=== PATIENT | female | born 1980 | race Caucasian/White ===

== ENCOUNTER 2017-06-01 20:35 | Emergency (ER) | payer SELFPAY, MEDICAID | END 2017-06-02 00:44 | disposition home or self-care (01) | LOC: FTE 20:35 | DX: S00.83XA Contusion of other part of head, initial encounter (principal); K05.10 Chronic gingivitis, plaque induced; W50.0XXA Accidental hit or strike by another person, initial encounter; Y92.9 Unspecified place or not applicable | CPT/HCPCS: 99283 ==

== ENCOUNTER 2018-06-03 15:13 | Emergency (ER) | payer MEDICAID ==
[2018-06-03 16:32] LABS: URINE BLOOD (Dip) POC 2+ (NEGATIVE); URINE GLUCOSE (Dip) POC Negative (NEGATIVE); URINE KETONES (Dip) POC Negative (NEGATIVE); URINE LEUKOCYTE EST (Dip) POC 3+ (NEGATIVE); URINE NITRITE (Dip) POC Negative (NEGATIVE); URINE TOTAL PROTEIN POC 1+ (NEGATIVE)
[2018-06-03] MEDS: LIDOCAINE 1% (MDV) 20 ML INJ SC (17:38)
[2018-06-03] MEDS: CEFTRIAXONE 1 GM INJ IM (17:38)
== END 2018-06-03 17:51 | disposition home or self-care (01) ==
LOC: FTE 17:51
DX: N39.0 Urinary tract infection, site not specified (principal)
CPT/HCPCS: 81003; 81025; 82962; 96372; 99284-25

== ENCOUNTER 2018-07-11 19:27 | Inpatient (IN) | payer MEDICAID ==
[2018-07-11 20:25] LABS: WHITE BLOOD COUNT 25.6 10^3/ul (4.8-10.8)
[2018-07-11 20:25] LABS: ABNORMAL IP MESSAGE 1; HEMATOCRIT 26.4 % (37.0-47.0); HEMOGLOBIN 7.4 g/dl (12.0-16.0); MEAN CORPUSCULAR HEMOGLOBIN 21.5 pg (29.0-33.0); MEAN CORPUSCULAR VOLUME 76.7 fl (82.0-101.0); MEAN PLATELET VOLUME 8.5 fl (7.4-10.4); PLATELET COUNT 834 10^3/UL (140-415); RED BLOOD COUNT 3.44 10^6/ul (4.20-5.40)
[2018-07-11] MEDS: SODIUM CHLORIDE 0.9% 1L BAG IV* (20:25)
[2018-07-11 20:35] LABS: ADD MAN DIFF? YES; POSITIVE DIFF @See below
[2018-07-11 20:36] LABS: PATH REVIEW? YES
[2018-07-11 20:44] LABS: INR 1.13; PROTIME 14.6 Sec (11.9-14.9); PT RATIO 1.1
[2018-07-11 20:45] LABS: PARTIAL THROMBOPLASTIN TIME 31.8 Sec (23.0-35.0)
[2018-07-11 20:50] LABS: ALBUMIN 3.5 g/dl (3.3-4.9); ALBUMIN/GLOBULIN RATIO 0.53; ALKALINE PHOSPHATASE 135 IU/L (42-121); ANION GAP 9 (5-13); ASPARTATE AMINO TRANSFERASE 18 IU/L (15-46); BILIRUBIN,INDIRECT 0.6 mg/dl (0-1.1); BILIRUBIN,TOTAL 0.6 mg/dl (0.2-1.3); BLOOD UREA NITROGEN 10 mg/dl (7-20); CALCIUM 9.2 mg/dl (8.4-10.2); CARBON DIOXIDE 25 mmol/L (21-31); CHLORIDE 100 mmol/L (97-110); CREATININE 0.92 mg/dl (0.44-1.00); Estimated GFR > 60 mL/min (>60); GLUCOSE 127 mg/dl (70-220); SODIUM 134 mmol/L (135-144)
[2018-07-11 20:51] LABS: ALANINE AMINOTRANSFERASE < 6 IU/L (13-69)
[2018-07-11 21:01] LABS: TROPONIN-I < 0.012 ng/ml (0.000-0.120)
[2018-07-11 21:24] LABS: ADD UMIC YES; UR AMORPHOUS CRYSTAL FEW /HPF (NONE SEEN); UR ASCORBIC ACID NEGATIVE (NEGATIVE); UR BACTERIA FEW /HPF (NONE SEEN); UR BILIRUBIN (Dip) NEGATIVE (NEGATIVE); UR BLOOD (Dip) 3+ mg/dL (NEGATIVE); UR CLARITY SLIGHTLY CLOUDY (CLEAR); UR COLOR YELLOW (YELLOW); UR GLUCOSE (Dip) NEGATIVE (NEGATIVE); UR KETONES (Dip) NEGATIVE (NEGATIVE); UR LEUKOCYTE ESTERASE (Dip) 3+ Leu/ul (NEGATIVE); UR NITRITE (Dip) NEGATIVE (NEGATIVE); UR RBC 33 /HPF (0-5); UR SPECIFIC GRAVITY (Dip) 1.008 (1.003-1.030); UR SQUAMOUS EPITHELIAL CELL FEW /HPF (FEW); UR TOTAL PROTEIN (Dip) NEGATIVE (NEGATIVE); UR UROBILINOGEN (Dip) 1+ mg/dL (NEGATIVE); UR WBC 38 /HPF (0-5)
[2018-07-11] MEDS: CEFEPIME 1GM/50 ML (PMX) 50 ML IVPB (21:25)
[2018-07-11] MEDS: VANCOMYCIN 1 GM (PMX) 250 ML IVPB (21:51)
[2018-07-11 22:04] LABS: ANISOCYTOSIS 2+ (0-0); BAND NEUTROPHILS #M 0.7 10^3/ul (0.0-0.6); BAND NEUTROPHILS % (M) 3 % (0-4); GIANT THROMBO% (M) 2 % (0-0); HYPOCHROMASIA 1+ (0-0); LYMPHOCYTES #M 6.9 10^3/ul (0.8-2.9); LYMPHOCYTES % (M) 27 % (15-51); MICROCYTOSIS 1+ (0-0); MONOCYTE #M 0.7 10^3/ul (0.3-0.9); MONOCYTES % (M) 3 % (0-11); PLATELET ESTIMATE INCREASED; POIKILOCYTOSIS 1+ (0-0); POLYCHROMASIA 3+ (0-0); SEG NEUT #M 17.3 10^3/ul (1.6-7.5); SEGMENTED NEUTROPHILS (M) % 67 % (39-77); SMUDGE%M 5 % (0-0)
[2018-07-11] MEDS: KETOROLAC 15 MG INJ IV (22:46)
[2018-07-11] MEDS: ACETAMINOPHEN 325 MG TAB PO (22:47)
[2018-07-12] MEDS ORDERED: ACETAMINOPHEN 325 MG TAB PO
[2018-07-12] MEDS ORDERED: ONDANSETRON 4 MG INJ IV ×2 (00:30)
[2018-07-12] MEDS ORDERED: NACL 0.9% 3 ML SYG IV (00:30)
[2018-07-12] MEDS ORDERED: HYDROmorphONE 0.5 MG/0.5 ML SYG IV (00:30)
[2018-07-12] MEDS: SOD CHLORIDE 0.9% 1,000 ML IV ×4 (00:32→22:26)
[2018-07-12] MEDS: TAMSULOSIN (SR) 0.4 MG CAP PO ×2 (00:33→21:33)
[2018-07-12] MEDS: CEFTRIAXONE 2 GM/50 ML (PMX) 50 ML IVPB (03:45)
[2018-07-12 06:21] LABS: IRON 17 ug/dl (35-150)
[2018-07-12 06:30] LABS: LACTIC ACID 0.9 mmol/L (0.5-2.0)
[2018-07-12 06:30] LABS: % IRON SATURATION 11 % SAT (22-52); TOTAL IRON BINDING CAPACITY 153 ug/dl (241-421)
[2018-07-12] MEDS: SOD FERRIC GLUC COMPLX 125 MG in SOD CHLORIDE 0.9% 100 ML IVPB (17:21)
[2018-07-13] MEDS: CEFTRIAXONE 2 GM/50 ML (PMX) 50 ML IVPB (03:46)
[2018-07-13 05:37] LABS: ADD MAN DIFF? NO
[2018-07-13 05:41] LABS: WHITE BLOOD COUNT 14.9 10^3/ul (4.8-10.8)
[2018-07-13 05:41] LABS: ABNORMAL IP MESSAGE 1; BASOPHIL # 0.1 10^3/ul (0.0-0.1); BASOPHILS % 0.4 % (0.0-2.0); EOSINOPHILS # 0.1 10^3/ul (0.0-0.5); EOSINOPHILS % 0.5 % (0.0-7.0); HEMATOCRIT 21.6 % (37.0-47.0); LYMPHOCYTES # 3.5 10^3/ul (0.8-2.9); LYMPHOCYTES % 23.4 % (15.0-51.0); MEAN CORPUSCULAR HEMOGLOBIN 21.7 pg (29.0-33.0); MEAN CORPUSCULAR HGB CONC 27.8 g/dl (32.0-37.0); MEAN PLATELET VOLUME 8.6 fl (7.4-10.4); MONOCYTES % 6.7 % (0.0-11.0); NEUTROPHIL # 10.2 10^3/ul (1.6-7.5); NEUTROPHILS % 68.4 % (39.0-77.0); PLATELET COUNT 583 10^3/UL (140-415); RED BLOOD COUNT 2.77 10^6/ul (4.20-5.40); RED CELL DISTRIBUTION WIDTH 19.9 % (11.5-14.5)
[2018-07-13 05:43] LABS: POSITIVE DIFF @See below
[2018-07-13 06:23] LABS: PHOSPHORUS 3.9 mg/dl (2.5-4.9)
[2018-07-13 06:34] LABS: ALBUMIN 2.8 g/dl (3.3-4.9); ALBUMIN/GLOBULIN RATIO 0.56; ALKALINE PHOSPHATASE 111 IU/L (42-121); ANION GAP 7 (5-13); ASPARTATE AMINO TRANSFERASE 22 IU/L (15-46); BILIRUBIN,INDIRECT 0.3 mg/dl (0-1.1); BILIRUBIN,TOTAL 0.3 mg/dl (0.2-1.3); BLOOD UREA NITROGEN 6 mg/dl (7-20); CALCIUM 8.2 mg/dl (8.4-10.2); CARBON DIOXIDE 24 mmol/L (21-31); CHLORIDE 105 mmol/L (97-110); CHOL/HDL RATIO 7.1 RATIO; CHOLESTEROL 100 mg/dl (100-200); CREATININE 0.71 mg/dl (0.44-1.00); Estimated GFR > 60 mL/min (>60); GLUCOSE 99 mg/dl (70-220); HDL CHOLESTEROL 14 mg/dl (34-82); LDL CHOLESTEROL,CALCULATED 66 mg/dl; MAGNESIUM 1.9 mg/dl (1.7-2.5); POTASSIUM 3.8 mmol/L (3.5-5.1); SODIUM 136 mmol/L (135-144); TOTAL PROTEIN 7.8 g/dl (6.1-8.1); TRIGLYCERIDES 101 mg/dl (0-149)
[2018-07-13 06:37] LABS: ADD MAN DIFF? NO
[2018-07-13 06:42] LABS: ALANINE AMINOTRANSFERASE < 6 IU/L (13-69)
[2018-07-13 06:48] LABS: WHITE BLOOD COUNT 16.5 10^3/ul (4.8-10.8)
[2018-07-13 06:48] LABS: ABNORMAL IP MESSAGE 1; BASOPHIL # 0.1 10^3/ul (0.0-0.1); BASOPHILS % 0.4 % (0.0-2.0); EOSINOPHILS # 0.1 10^3/ul (0.0-0.5); EOSINOPHILS % 0.5 % (0.0-7.0); HEMATOCRIT 22.7 % (37.0-47.0); LYMPHOCYTES # 4.4 10^3/ul (0.8-2.9); LYMPHOCYTES % 26.8 % (15.0-51.0); MEAN CORPUSCULAR HEMOGLOBIN 21.5 pg (29.0-33.0); MEAN CORPUSCULAR HGB CONC 27.8 g/dl (32.0-37.0); MEAN CORPUSCULAR VOLUME 77.5 fl (82.0-101.0); MEAN PLATELET VOLUME 8.4 fl (7.4-10.4); MONOCYTE # 1.1 10^3/ul (0.3-0.9); MONOCYTES % 6.7 % (0.0-11.0); NEUTROPHIL # 10.7 10^3/ul (1.6-7.5); NEUTROPHILS % 64.9 % (39.0-77.0); PLATELET COUNT 605 10^3/UL (140-415); RED BLOOD COUNT 2.93 10^6/ul (4.20-5.40); RED CELL DISTRIBUTION WIDTH 19.9 % (11.5-14.5)
[2018-07-13 07:16] LABS: HEMOGLOBIN 6.3 g/dl (12.0-16.0); POSITIVE DIFF @See below
[2018-07-13 07:17] LABS: PATH REVIEW? YES
[2018-07-13] MEDS: SOD CHLORIDE 0.9% 250 ML IV* (08:35)
[2018-07-13 09:03] LABS: IMMEDIATE SPIN CROSSMATCH 1 2
[2018-07-13 09:27] LABS: ANISOCYTOSIS 1+ (0-0); BAND NEUTROPHILS #M 0.2 10^3/ul (0.0-0.6); BAND NEUTROPHILS % (M) 2 % (0-4); GIANT THROMBO% (M) 1 % (0-0); HYPOCHROMASIA 1+ (0-0); LYMPHOCYTES % (M) 27 % (15-51); MICROCYTOSIS 1+ (0-0); MONOCYTE #M 0.8 10^3/ul (0.3-0.9); MONOCYTES % (M) 6 % (0-11); PLATELET ESTIMATE INCREASED; POLYCHROMASIA 2+ (0-0); SEG NEUT #M 9.7 10^3/ul (1.6-7.5); SEGMENTED NEUTROPHILS (M) % 65 % (39-77); SMUDGE%M 5 % (0-0)
[2018-07-13 10:38] LABS: ANISOCYTOSIS 1+ (0-0); EOSINOPHILS % (M) 1 % (0-7); GIANT THROMBO% (M) 1 % (0-0); HYPOCHROMASIA 2+ (0-0); LYMPHOCYTES #M 4.7 10^3/ul (0.8-2.9); LYMPHOCYTES % (M) 29 % (15-51); MICROCYTOSIS 1+ (0-0); PLATELET ESTIMATE INCREASED; POLYCHROMASIA 2+ (0-0); SEGMENTED NEUTROPHILS (M) % 70 % (39-77); SMUDGE%M 14 % (0-0); SPHEROCYTES 1+ (0-0)
[2018-07-13] MEDS: SOD FERRIC GLUC COMPLX 125 MG in SOD CHLORIDE 0.9% 100 ML IVPB (14:16)
[2018-07-13] MEDS: SOD CHLORIDE 0.9% 1,000 ML IV ×2 (16:04→20:00)
[2018-07-14] MEDS: CEFTRIAXONE 2 GM/50 ML (PMX) 50 ML IVPB (04:02)
[2018-07-14 05:07] LABS: ADD MAN DIFF? NO
[2018-07-14 05:15] LABS: WHITE BLOOD COUNT 16.6 10^3/ul (4.8-10.8)
[2018-07-14 05:15] LABS: BASOPHIL # 0.1 10^3/ul (0.0-0.1); BASOPHILS % 0.4 % (0.0-2.0); EOSINOPHILS # 0.1 10^3/ul (0.0-0.5); EOSINOPHILS % 0.4 % (0.0-7.0); HEMATOCRIT 25.7 % (37.0-47.0); HEMOGLOBIN 7.5 g/dl (12.0-16.0); LYMPHOCYTES % 24.3 % (15.0-51.0); MEAN CORPUSCULAR HGB CONC 29.2 g/dl (32.0-37.0); MEAN CORPUSCULAR VOLUME 78.8 fl (82.0-101.0); MEAN PLATELET VOLUME 8.5 fl (7.4-10.4); MONOCYTE # 1.1 10^3/ul (0.3-0.9); MONOCYTES % 6.8 % (0.0-11.0); NEUTROPHIL # 11.2 10^3/ul (1.6-7.5); NEUTROPHILS % 67.5 % (39.0-77.0); PLATELET COUNT 522 10^3/UL (140-415); RED BLOOD COUNT 3.26 10^6/ul (4.20-5.40); RED CELL DISTRIBUTION WIDTH 19.9 % (11.5-14.5)
[2018-07-14 05:44] LABS: MAGNESIUM 1.8 mg/dl (1.7-2.5)
[2018-07-14 05:44] LABS: PHOSPHORUS 4.3 mg/dl (2.5-4.9)
[2018-07-14 05:48] LABS: ANION GAP 7 (5-13); BLOOD UREA NITROGEN 5 mg/dl (7-20); CALCIUM 8.2 mg/dl (8.4-10.2); CARBON DIOXIDE 24 mmol/L (21-31); CHLORIDE 106 mmol/L (97-110); CREATININE 0.64 mg/dl (0.44-1.00); Estimated GFR > 60 mL/min (>60); GLUCOSE 97 mg/dl (70-220); SODIUM 137 mmol/L (135-144)
[2018-07-14] MEDS: SOD CHLORIDE 0.9% 1,000 ML IV ×3 (05:53→18:58)
[2018-07-14] MEDS: SOD FERRIC GLUC COMPLX 125 MG in SOD CHLORIDE 0.9% 100 ML IVPB (14:12)
[2018-07-14] MEDS: LEVOFLOXACIN 750MG/D5W (PMX) 150 ML IVPB (18:46)
[2018-07-15] MEDS: ACETAMINOPHEN 325 MG TAB PO ×2 (00:23→21:35)
[2018-07-15 05:14] LABS: ADD MAN DIFF? NO
[2018-07-15 05:40] LABS: ABNORMAL IP MESSAGE 1; BASOPHIL # 0.1 10^3/ul (0.0-0.1); BASOPHILS % 0.2 % (0.0-2.0); HEMATOCRIT 30.8 % (37.0-47.0); LYMPHOCYTES # 3.3 10^3/ul (0.8-2.9); MEAN CORPUSCULAR HGB CONC 29.2 g/dl (32.0-37.0); MEAN CORPUSCULAR VOLUME 78.8 fl (82.0-101.0); MEAN PLATELET VOLUME 9.3 fl (7.4-10.4); MONOCYTE # 1.5 10^3/ul (0.3-0.9); MONOCYTES % 5.7 % (0.0-11.0); NEUTROPHIL # 20.5 10^3/ul (1.6-7.5); PLATELET COUNT 349 10^3/UL (140-415); RED BLOOD COUNT 3.91 10^6/ul (4.20-5.40); RED CELL DISTRIBUTION WIDTH 20.9 % (11.5-14.5)
[2018-07-15 05:40] LABS: WHITE BLOOD COUNT 25.6 10^3/ul (4.8-10.8)
[2018-07-15 05:44] LABS: POSITIVE DIFF @See below
[2018-07-15 06:12] LABS: PHOSPHORUS 4.8 mg/dl (2.5-4.9)
[2018-07-15 06:12] LABS: MAGNESIUM 1.7 mg/dl (1.7-2.5)
[2018-07-15 06:13] LABS: ANION GAP 8 (5-13); BLOOD UREA NITROGEN 7 mg/dl (7-20); CALCIUM 8.5 mg/dl (8.4-10.2); CARBON DIOXIDE 24 mmol/L (21-31); CHLORIDE 105 mmol/L (97-110); CREATININE 0.59 mg/dl (0.44-1.00); Estimated GFR > 60 mL/min (>60); GLUCOSE 108 mg/dl (70-220); POTASSIUM 3.8 mmol/L (3.5-5.1); SODIUM 137 mmol/L (135-144)
[2018-07-15] MEDS: BISACODYL (EC) 5 MG TAB PO (09:11)
[2018-07-15] MEDS: DOCUSATE SODIUM 100 MG CAP PO (09:11)
[2018-07-15 14:25] LABS: OCCULT BLOOD STOOL NEGATIVE (NEGATIVE)
[2018-07-15] MEDS: LEVOFLOXACIN 750MG/D5W (PMX) 150 ML IVPB (16:31)
[2018-07-16 05:56] LABS: ADD MAN DIFF? NO
[2018-07-16 06:06] LABS: WHITE BLOOD COUNT 24.6 10^3/ul (4.8-10.8)
[2018-07-16 06:06] LABS: BASOPHIL # 0.1 10^3/ul (0.0-0.1); BASOPHILS % 0.2 % (0.0-2.0); EOSINOPHILS % 0.2 % (0.0-7.0); HEMATOCRIT 28.2 % (37.0-47.0); HEMOGLOBIN 8.2 g/dl (12.0-16.0); LYMPHOCYTES # 3.3 10^3/ul (0.8-2.9); LYMPHOCYTES % 13.2 % (15.0-51.0); MEAN CORPUSCULAR HEMOGLOBIN 23.5 pg (29.0-33.0); MEAN CORPUSCULAR HGB CONC 29.1 g/dl (32.0-37.0); MEAN CORPUSCULAR VOLUME 80.8 fl (82.0-101.0); MONOCYTE # 1.4 10^3/ul (0.3-0.9); MONOCYTES % 5.7 % (0.0-11.0); NEUTROPHIL # 19.6 10^3/ul (1.6-7.5); NEUTROPHILS % 79.6 % (39.0-77.0); PLATELET COUNT 469 10^3/UL (140-415); RED BLOOD COUNT 3.49 10^6/ul (4.20-5.40); RED CELL DISTRIBUTION WIDTH 20.8 % (11.5-14.5)
[2018-07-16 06:48] LABS: MAGNESIUM 1.9 mg/dl (1.7-2.5)
[2018-07-16 06:48] LABS: PHOSPHORUS 4.2 mg/dl (2.5-4.9)
[2018-07-16 06:51] LABS: ANION GAP 6 (5-13); BLOOD UREA NITROGEN 9 mg/dl (7-20); CALCIUM 8.5 mg/dl (8.4-10.2); CARBON DIOXIDE 27 mmol/L (21-31); CHLORIDE 103 mmol/L (97-110); CREATININE 0.58 mg/dl (0.44-1.00); Estimated GFR > 60 mL/min (>60); GLUCOSE 93 mg/dl (70-220); SODIUM 136 mmol/L (135-144)
[2018-07-16] MEDS ORDERED: IOHEXOL 300MG/ML 30 ML BTL (17:34)
[2018-07-16] MEDS ORDERED: MIDAZOLAM 1 MG/ML 2 ML INJ (17:46)
[2018-07-16] MEDS ORDERED: FENTAnyl 50 MCG/ML VIAL (17:46)
[2018-07-16] MEDS ORDERED: CEFAZOLIN 1 GM INJ (17:59)
[2018-07-16] MEDS ORDERED: ONDANSETRON 4 MG INJ (18:07)
[2018-07-16] MEDS ORDERED: KETAMINE (50 MG/ML) 10 ML VIAL (18:17)
[2018-07-16] MEDS ORDERED: hydrALAzine 20 MG INJ IV (19:00)
[2018-07-16] MEDS ORDERED: ONDANSETRON 4 MG INJ IV (19:00)
[2018-07-16] MEDS ORDERED: LABETALOL HCL 20MG INJ IV (19:00)
[2018-07-16] MEDS: LEVOFLOXACIN 750MG/D5W (PMX) 150 ML IVPB (21:36)
[2018-07-17 05:48] LABS: ADD MAN DIFF? NO
[2018-07-17 05:54] LABS: ABNORMAL IP MESSAGE 1; BASOPHIL # 0.1 10^3/ul (0.0-0.1); BASOPHILS % 0.3 % (0.0-2.0); EOSINOPHILS # 0.1 10^3/ul (0.0-0.5); EOSINOPHILS % 0.3 % (0.0-7.0); HEMATOCRIT 27.1 % (37.0-47.0); HEMOGLOBIN 7.8 g/dl (12.0-16.0); LYMPHOCYTES # 3.3 10^3/ul (0.8-2.9); LYMPHOCYTES % 18.3 % (15.0-51.0); MEAN CORPUSCULAR HEMOGLOBIN 23.4 pg (29.0-33.0); MEAN CORPUSCULAR HGB CONC 28.8 g/dl (32.0-37.0); MEAN CORPUSCULAR VOLUME 81.4 fl (82.0-101.0); MEAN PLATELET VOLUME 8.9 fl (7.4-10.4); MONOCYTE # 1.1 10^3/ul (0.3-0.9); MONOCYTES % 6.1 % (0.0-11.0); NEUTROPHIL # 13.3 10^3/ul (1.6-7.5); NEUTROPHILS % 74.3 % (39.0-77.0); PLATELET COUNT 484 10^3/UL (140-415); RED BLOOD COUNT 3.33 10^6/ul (4.20-5.40); RED CELL DISTRIBUTION WIDTH 20.7 % (11.5-14.5)
[2018-07-17 05:54] LABS: WHITE BLOOD COUNT 17.9 10^3/ul (4.8-10.8)
[2018-07-17 06:00] LABS: POSITIVE DIFF @See below
[2018-07-17 06:28] LABS: ANION GAP 7 (5-13); BLOOD UREA NITROGEN 10 mg/dl (7-20); CALCIUM 8.3 mg/dl (8.4-10.2); CARBON DIOXIDE 26 mmol/L (21-31); CHLORIDE 105 mmol/L (97-110); CREATININE 0.61 mg/dl (0.44-1.00); Estimated GFR > 60 mL/min (>60); GLUCOSE 85 mg/dl (70-220); SODIUM 138 mmol/L (135-144)
[2018-07-17 12:03] LABS: IMMEDIATE SPIN CROSSMATCH 1 1
[2018-07-17] MEDS: SOD CHLORIDE 0.9% 250 ML IV* (12:10)
[2018-07-17] MEDS: LEVOFLOXACIN 750MG/D5W (PMX) 150 ML IVPB (17:06)
[2018-07-17] MEDS: ACETAMINOPHEN 325 MG TAB PO (20:14)
[2018-07-18 05:57] LABS: ADD MAN DIFF? NO
[2018-07-18 06:00] LABS: BASOPHILS % 0.3 % (0.0-2.0); EOSINOPHILS # 0.1 10^3/ul (0.0-0.5); EOSINOPHILS % 0.7 % (0.0-7.0); HEMATOCRIT 29.4 % (37.0-47.0); HEMOGLOBIN 8.6 g/dl (12.0-16.0); LYMPHOCYTES # 3.1 10^3/ul (0.8-2.9); LYMPHOCYTES % 23.4 % (15.0-51.0); MEAN CORPUSCULAR HEMOGLOBIN 23.9 pg (29.0-33.0); MEAN CORPUSCULAR HGB CONC 29.3 g/dl (32.0-37.0); MEAN CORPUSCULAR VOLUME 81.7 fl (82.0-101.0); MEAN PLATELET VOLUME 9.1 fl (7.4-10.4); MONOCYTE # 0.9 10^3/ul (0.3-0.9); MONOCYTES % 6.8 % (0.0-11.0); NEUTROPHIL # 8.9 10^3/ul (1.6-7.5); NEUTROPHILS % 67.9 % (39.0-77.0); PLATELET COUNT 473 10^3/UL (140-415); RED CELL DISTRIBUTION WIDTH 20.3 % (11.5-14.5)
[2018-07-18 06:00] LABS: WHITE BLOOD COUNT 13.1 10^3/ul (4.8-10.8)
[2018-07-18] MEDS: CEFTRIAXONE 1 GM/50 ML (PMX) 50 ML IVPB (10:48)
== END 2018-07-18 13:20 | disposition home or self-care (01) | DRG 854 ==
LOC: 2NE 07-17 08:20 → 6WM 23:42 → E/R 19:27 → 2NE 07-12 21:50
PROVIDERS: Family Medicine
PROC: 0T768DZ Dilation of Right Ureter with Intraluminal Device, Via Natural or Artificial Opening Endoscopic (ICD-10-PCS; principal; 2018-07-16 17:30)
PROC: 30233N1 Transfusion of Nonautologous Red Blood Cells into Peripheral Vein, Percutaneous Approach (ICD-10-PCS; 2018-07-16 17:39)
DX: A41.9 Sepsis, unspecified organism (principal); N13.6 Pyonephrosis; Z68.42 Body mass index [BMI] 45.0-49.9, adult; N11.1 Chronic obstructive pyelonephritis; E66.01 Morbid (severe) obesity due to excess calories; N20.0 Calculus of kidney; D50.9 Iron deficiency anemia, unspecified; B96.4 Proteus (mirabilis) (morganii) as the cause of diseases classified elsewhere
CPT/HCPCS: 36415; 36430; 71045; 74018; 74176; 74430; 80048; 80053; 80061; 81001; 82270; 82728; 83036; 83540; 83605; 83735; 84100; 84443; 84484; 84703; 85025; 85610; 85730; 86850; 86900; 86901; 86920; 87040-91; 87045; 87075; 87086; 87102; 93005; 96374; 96375; 99285-25

== ENCOUNTER 2018-08-06 22:19 | Inpatient (IN) | payer MEDICAID ==
[2018-08-06 23:12] LABS: URINE BLOOD (Dip) POC Trace-intact (NEGATIVE); URINE GLUCOSE (Dip) POC Negative (NEGATIVE); URINE KETONES (Dip) POC 1+ (NEGATIVE); URINE LEUKOCYTE EST (Dip) POC 1+ (NEGATIVE); URINE NITRITE (Dip) POC Negative (NEGATIVE); URINE TOTAL PROTEIN POC 2+ (NEGATIVE)
[2018-08-06] MEDS: SOD CHLORIDE 0.9% 1,000 ML IV (23:24)
[2018-08-07] MEDS: ONDANSETRON 4 MG INJ IV (00:46)
[2018-08-07] MEDS: morphine 4 MG/ML VIAL IV (00:47)
[2018-08-07 01:04] LABS: ADD MAN DIFF? NO
[2018-08-07 01:22] LABS: WHITE BLOOD COUNT 21.3 10^3/ul (4.8-10.8)
[2018-08-07 01:22] LABS: BASOPHILS % 0.2 % (0.0-2.0); HEMATOCRIT 27.2 % (37.0-47.0); HEMOGLOBIN 8.1 g/dl (12.0-16.0); LYMPHOCYTES % 9.3 % (15.0-51.0); MEAN CORPUSCULAR HEMOGLOBIN 24.5 pg (29.0-33.0); MEAN CORPUSCULAR HGB CONC 29.8 g/dl (32.0-37.0); MEAN CORPUSCULAR VOLUME 82.2 fl (82.0-101.0); MEAN PLATELET VOLUME 8.9 fl (7.4-10.4); MONOCYTE # 1.2 10^3/ul (0.3-0.9); MONOCYTES % 5.5 % (0.0-11.0); NEUTROPHIL # 17.9 10^3/ul (1.6-7.5); NEUTROPHILS % 84.3 % (39.0-77.0); PLATELET COUNT 508 10^3/UL (140-415); RED BLOOD COUNT 3.31 10^6/ul (4.20-5.40); RED CELL DISTRIBUTION WIDTH 18.8 % (11.5-14.5)
[2018-08-07 01:28] LABS: ALANINE AMINOTRANSFERASE 8 IU/L (13-69); ALBUMIN/GLOBULIN RATIO 0.57; ALKALINE PHOSPHATASE 110 IU/L (42-121); ANION GAP 12 (5-13); ASPARTATE AMINO TRANSFERASE 19 IU/L (15-46); BILIRUBIN,INDIRECT 0.4 mg/dl (0-1.1); BILIRUBIN,TOTAL 0.4 mg/dl (0.2-1.3); BLOOD UREA NITROGEN 8 mg/dl (7-20); CALCIUM 8.6 mg/dl (8.4-10.2); CARBON DIOXIDE 24 mmol/L (21-31); CHLORIDE 101 mmol/L (97-110); CREATININE 0.59 mg/dl (0.44-1.00); Estimated GFR > 60 mL/min (>60); GLUCOSE 96 mg/dl (70-220); LIPASE 11 U/L (23-300); SODIUM 137 mmol/L (135-144); TOTAL PROTEIN 8.2 g/dl (6.1-8.1)
[2018-08-07 01:32] LABS: ADD UMIC YES; UR ASCORBIC ACID 40 mg/dL (NEGATIVE); UR BACTERIA FEW /HPF (NONE SEEN); UR BILIRUBIN (Dip) NEGATIVE (NEGATIVE); UR BLOOD (Dip) NEGATIVE (NEGATIVE); UR CLARITY CLOUDY (CLEAR); UR COLOR AMBER (YELLOW); UR GLUCOSE (Dip) NEGATIVE (NEGATIVE); UR KETONES (Dip) TRACE mg/dL (NEGATIVE); UR LEUKOCYTE ESTERASE (Dip) 2+ Leu/ul (NEGATIVE); UR MUCUS MODERATE /HPF (NONE SEEN); UR NITRITE (Dip) NEGATIVE (NEGATIVE); UR RBC 0 /HPF (0-5); UR SPECIFIC GRAVITY (Dip) 1.021 (1.003-1.030); UR SQUAMOUS EPITHELIAL CELL MANY /HPF (FEW); UR TOTAL PROTEIN (Dip) 2+ mg/dl (NEGATIVE); UR UROBILINOGEN (Dip) NEGATIVE (NEGATIVE); UR WBC 85 /HPF (0-5)
[2018-08-07] MEDS: VANCOMYCIN 1 GM (PMX) 250 ML IVPB (03:00)
[2018-08-07] MEDS ORDERED: ONDANSETRON 4 MG INJ IV ×2 (03:00→03:30)
[2018-08-07] MEDS ORDERED: VANCOMYCIN IV PER PHARMACY XX (03:30)
[2018-08-07] MEDS ORDERED: HYDROmorphONE 0.5 MG/0.5 ML SYG IV (03:30)
[2018-08-07] MEDS ORDERED: HYDROCODONE/APAP (5/325) TAB PO (03:30)
[2018-08-07] MEDS: PIPER-TAZO 3.375 GM IV (PMX) 100 ML IVPB (04:22)
[2018-08-07] MEDS: VANCOMYCIN 1 GM in 250 ML IVPB (07:26)
[2018-08-07] MEDS: ACETAMINOPHEN 325 MG TAB PO ×2 (07:56→18:53)
[2018-08-07 08:27] LABS: INR 1.44; PROTIME 17.6 Sec (11.9-14.9); PT RATIO 1.4
[2018-08-07 08:28] LABS: PARTIAL THROMBOPLASTIN TIME 33.9 Sec (23.0-35.0)
[2018-08-07] MEDS: SOD CHLORIDE 0.9% 1,000 ML IV ×2 (09:54→15:37)
[2018-08-07] MEDS: FERROUS SULFATE (EC) 325 MG TAB PO (09:54)
[2018-08-07] MEDS: MEROPENEM 1 GM/50ML(PMX) 50 ML IVPB ×2 (09:54→21:12)
[2018-08-07] MEDS: ASCORBIC ACID 500 MG TAB PO (09:55)
[2018-08-07] MEDS: VANCOMYCIN HCL 1.5 GM in SOD CHLORIDE 0.9% 250 ML IVPB (17:27)
[2018-08-08] MEDS: SOD CHLORIDE 0.9% 1,000 ML IV ×2 (01:31→16:48)
[2018-08-08 05:08] LABS: ADD MAN DIFF? NO
[2018-08-08] MEDS: ACETAMINOPHEN 325 MG TAB PO ×2 (05:10→16:48)
[2018-08-08 05:14] LABS: WHITE BLOOD COUNT 19.8 10^3/ul (4.8-10.8)
[2018-08-08 05:14] LABS: ABNORMAL IP MESSAGE 1; BASOPHIL # 0.1 10^3/ul (0.0-0.1); BASOPHILS % 0.3 % (0.0-2.0); EOSINOPHILS # 0.1 10^3/ul (0.0-0.5); EOSINOPHILS % 0.5 % (0.0-7.0); HEMATOCRIT 26.2 % (37.0-47.0); HEMOGLOBIN 7.5 g/dl (12.0-16.0); LYMPHOCYTES # 3.3 10^3/ul (0.8-2.9); LYMPHOCYTES % 16.8 % (15.0-51.0); MEAN CORPUSCULAR HGB CONC 28.6 g/dl (32.0-37.0); MEAN PLATELET VOLUME 8.6 fl (7.4-10.4); MONOCYTE # 1.4 10^3/ul (0.3-0.9); MONOCYTES % 7.2 % (0.0-11.0); NEUTROPHIL # 14.8 10^3/ul (1.6-7.5); NEUTROPHILS % 74.5 % (39.0-77.0); PLATELET COUNT 503 10^3/UL (140-415); RED BLOOD COUNT 3.12 10^6/ul (4.20-5.40); RED CELL DISTRIBUTION WIDTH 19.3 % (11.5-14.5)
[2018-08-08 05:26] LABS: PHOSPHORUS 3.8 mg/dl (2.5-4.9)
[2018-08-08 05:26] LABS: MAGNESIUM 1.8 mg/dl (1.7-2.5)
[2018-08-08 05:28] LABS: ALANINE AMINOTRANSFERASE 8 IU/L (13-69); ALBUMIN 2.7 g/dl (3.3-4.9); ALBUMIN/GLOBULIN RATIO 0.55; ALKALINE PHOSPHATASE 104 IU/L (42-121); ANION GAP 6 (5-13); ASPARTATE AMINO TRANSFERASE 20 IU/L (15-46); BILIRUBIN,INDIRECT 0.3 mg/dl (0-1.1); BILIRUBIN,TOTAL 0.3 mg/dl (0.2-1.3); BLOOD UREA NITROGEN 5 mg/dl (7-20); CARBON DIOXIDE 25 mmol/L (21-31); CHLORIDE 105 mmol/L (97-110); CREATININE 0.56 mg/dl (0.44-1.00); Estimated GFR > 60 mL/min (>60); GLUCOSE 94 mg/dl (70-220); POTASSIUM 4.1 mmol/L (3.5-5.1); SODIUM 136 mmol/L (135-144); TOTAL PROTEIN 7.6 g/dl (6.1-8.1)
[2018-08-08] MEDS: VANCOMYCIN HCL 1.5 GM in SOD CHLORIDE 0.9% 250 ML IVPB ×2 (05:59→18:10)
[2018-08-08 06:03] LABS: POSITIVE DIFF @See below
[2018-08-08 09:08] LABS: HEMOGLOBIN A1C 5.3 % (0-5.9)
[2018-08-08] MEDS: ASCORBIC ACID 500 MG TAB PO (09:14)
[2018-08-08] MEDS: MEROPENEM 1 GM/50ML(PMX) 50 ML IVPB ×2 (09:14→23:48)
[2018-08-08] MEDS: FERROUS SULFATE (EC) 325 MG TAB PO (09:15)
[2018-08-08 18:02] LABS: VANCOMYCIN,TROUGH 9.6 ug/ml (10.0-20.0)
[2018-08-09] MEDS: ACETAMINOPHEN 325 MG TAB PO (02:18)
[2018-08-09] MEDS: SOD CHLORIDE 0.9% 1,000 ML IV ×2 (05:07→20:57)
[2018-08-09 05:18] LABS: ADD MAN DIFF? NO
[2018-08-09 05:25] LABS: WHITE BLOOD COUNT 20.8 10^3/ul (4.8-10.8)
[2018-08-09 05:25] LABS: ABNORMAL IP MESSAGE 1; BASOPHIL # 0.1 10^3/ul (0.0-0.1); BASOPHILS % 0.3 % (0.0-2.0); EOSINOPHILS # 0.1 10^3/ul (0.0-0.5); EOSINOPHILS % 0.5 % (0.0-7.0); HEMATOCRIT 26.2 % (37.0-47.0); HEMOGLOBIN 7.5 g/dl (12.0-16.0); LYMPHOCYTES # 3.7 10^3/ul (0.8-2.9); LYMPHOCYTES % 17.6 % (15.0-51.0); MEAN CORPUSCULAR HEMOGLOBIN 24.2 pg (29.0-33.0); MEAN CORPUSCULAR HGB CONC 28.6 g/dl (32.0-37.0); MEAN CORPUSCULAR VOLUME 84.5 fl (82.0-101.0); MEAN PLATELET VOLUME 8.8 fl (7.4-10.4); MONOCYTE # 1.3 10^3/ul (0.3-0.9); MONOCYTES % 6.5 % (0.0-11.0); NEUTROPHIL # 15.4 10^3/ul (1.6-7.5); NEUTROPHILS % 73.9 % (39.0-77.0); PLATELET COUNT 526 10^3/UL (140-415); RED CELL DISTRIBUTION WIDTH 18.9 % (11.5-14.5)
[2018-08-09 05:27] LABS: POSITIVE DIFF @See below
[2018-08-09] MEDS: VANCOMYCIN HCL 1.5 GM in SOD CHLORIDE 0.9% 250 ML IVPB ×2 (05:47→20:45)
[2018-08-09 05:48] LABS: ALANINE AMINOTRANSFERASE 9 IU/L (13-69); ALBUMIN 2.6 g/dl (3.3-4.9); ALBUMIN/GLOBULIN RATIO 0.56; ALKALINE PHOSPHATASE 103 IU/L (42-121); ANION GAP 8 (5-13); ASPARTATE AMINO TRANSFERASE 22 IU/L (15-46); BILIRUBIN,INDIRECT 0.3 mg/dl (0-1.1); BILIRUBIN,TOTAL 0.3 mg/dl (0.2-1.3); BLOOD UREA NITROGEN 6 mg/dl (7-20); CALCIUM 7.6 mg/dl (8.4-10.2); CARBON DIOXIDE 24 mmol/L (21-31); CHLORIDE 106 mmol/L (97-110); CREATININE 0.53 mg/dl (0.44-1.00); Estimated GFR > 60 mL/min (>60); GLUCOSE 102 mg/dl (70-220); POTASSIUM 3.5 mmol/L (3.5-5.1); SODIUM 138 mmol/L (135-144); TOTAL PROTEIN 7.2 g/dl (6.1-8.1)
[2018-08-09 05:53] LABS: PHOSPHORUS 3.9 mg/dl (2.5-4.9)
[2018-08-09 05:53] LABS: MAGNESIUM 1.8 mg/dl (1.7-2.5)
[2018-08-09] MEDS: ASCORBIC ACID 500 MG TAB PO (08:33)
[2018-08-09] MEDS: FERROUS SULFATE (EC) 325 MG TAB PO (08:33)
[2018-08-09] MEDS: IOHEXOL 300MG/ML 150 ML BTL (09:29)
[2018-08-09] MEDS: SOD CHLORIDE 0.9% 100 ML (09:29)
[2018-08-09] MEDS: MEROPENEM 1 GM/50ML(PMX) 50 ML IVPB (09:47)
[2018-08-10] MEDS: MEROPENEM 1 GM/50ML(PMX) 50 ML IVPB ×3 (00:30→23:26)
[2018-08-10] MEDS: SOD CHLORIDE 0.9% 1,000 ML IV ×2 (04:00→18:41)
[2018-08-10 05:21] LABS: ADD MAN DIFF? NO
[2018-08-10 05:30] LABS: BASOPHIL # 0.1 10^3/ul (0.0-0.1); BASOPHILS % 0.5 % (0.0-2.0); EOSINOPHILS # 0.3 10^3/ul (0.0-0.5); EOSINOPHILS % 1.6 % (0.0-7.0); HEMATOCRIT 25.2 % (37.0-47.0); HEMOGLOBIN 7.5 g/dl (12.0-16.0); LYMPHOCYTES # 4.1 10^3/ul (0.8-2.9); LYMPHOCYTES % 25.9 % (15.0-51.0); MEAN CORPUSCULAR HEMOGLOBIN 24.3 pg (29.0-33.0); MEAN CORPUSCULAR HGB CONC 29.8 g/dl (32.0-37.0); MEAN CORPUSCULAR VOLUME 81.6 fl (82.0-101.0); MEAN PLATELET VOLUME 8.8 fl (7.4-10.4); MONOCYTE # 1.2 10^3/ul (0.3-0.9); MONOCYTES % 7.8 % (0.0-11.0); NEUTROPHIL # 10.1 10^3/ul (1.6-7.5); NEUTROPHILS % 63.4 % (39.0-77.0); PLATELET COUNT 527 10^3/UL (140-415); RED BLOOD COUNT 3.09 10^6/ul (4.20-5.40); RED CELL DISTRIBUTION WIDTH 19.1 % (11.5-14.5)
[2018-08-10 05:30] LABS: WHITE BLOOD COUNT 15.9 10^3/ul (4.8-10.8)
[2018-08-10 05:51] LABS: PHOSPHORUS 4.5 mg/dl (2.5-4.9)
[2018-08-10] MEDS: VANCOMYCIN HCL 1.5 GM in SOD CHLORIDE 0.9% 250 ML IVPB ×2 (05:56→19:44)
[2018-08-10 06:23] LABS: ALANINE AMINOTRANSFERASE 16 IU/L (13-69); ALBUMIN 2.5 g/dl (3.3-4.9); ALBUMIN/GLOBULIN RATIO 0.54; ALKALINE PHOSPHATASE 104 IU/L (42-121); ANION GAP 6 (5-13); ASPARTATE AMINO TRANSFERASE 32 IU/L (15-46); BILIRUBIN,INDIRECT 0.2 mg/dl (0-1.1); BILIRUBIN,TOTAL 0.2 mg/dl (0.2-1.3); BLOOD UREA NITROGEN 6 mg/dl (7-20); CALCIUM 7.8 mg/dl (8.4-10.2); CARBON DIOXIDE 27 mmol/L (21-31); CHLORIDE 105 mmol/L (97-110); CREATININE 0.57 mg/dl (0.44-1.00); Estimated GFR > 60 mL/min (>60); GLUCOSE 96 mg/dl (70-220); POTASSIUM 3.6 mmol/L (3.5-5.1); SODIUM 138 mmol/L (135-144); TOTAL PROTEIN 7.1 g/dl (6.1-8.1)
[2018-08-10] MEDS: ASCORBIC ACID 500 MG TAB PO (09:17)
[2018-08-10] MEDS: FERROUS SULFATE (EC) 325 MG TAB PO (09:17)
[2018-08-10 18:48] LABS: VANCOMYCIN,TROUGH 11.7 ug/ml (10.0-20.0)
[2018-08-10] MEDS: POLYETHYLENE GLYCOL 17 GM PACKET PO (22:12)
[2018-08-10] MEDS: DOCUSATE SODIUM 100 MG CAP PO (22:13)
[2018-08-11] MEDS: SOD CHLORIDE 0.9% 1,000 ML IV (05:00)
[2018-08-11 05:29] LABS: ADD MAN DIFF? NO
[2018-08-11 05:36] LABS: BASOPHILS % 0.4 % (0.0-2.0); EOSINOPHILS # 0.4 10^3/ul (0.0-0.5); EOSINOPHILS % 3.6 % (0.0-7.0); HEMATOCRIT 25.9 % (37.0-47.0); HEMOGLOBIN 7.6 g/dl (12.0-16.0); LYMPHOCYTES # 3.5 10^3/ul (0.8-2.9); LYMPHOCYTES % 32.2 % (15.0-51.0); MEAN CORPUSCULAR HEMOGLOBIN 24.3 pg (29.0-33.0); MEAN CORPUSCULAR HGB CONC 29.3 g/dl (32.0-37.0); MEAN CORPUSCULAR VOLUME 82.7 fl (82.0-101.0); MONOCYTE # 0.8 10^3/ul (0.3-0.9); NEUTROPHIL # 6.1 10^3/ul (1.6-7.5); NEUTROPHILS % 56.3 % (39.0-77.0); PLATELET COUNT 507 10^3/UL (140-415); RED BLOOD COUNT 3.13 10^6/ul (4.20-5.40); RED CELL DISTRIBUTION WIDTH 19.1 % (11.5-14.5)
[2018-08-11 05:36] LABS: WHITE BLOOD COUNT 10.7 10^3/ul (4.8-10.8)
[2018-08-11] MEDS: VANCOMYCIN HCL 1.5 GM in SOD CHLORIDE 0.9% 250 ML IVPB ×2 (05:45→17:50)
[2018-08-11 06:08] LABS: PHOSPHORUS 4.3 mg/dl (2.5-4.9)
[2018-08-11 06:11] LABS: ALANINE AMINOTRANSFERASE 15 IU/L (13-69); ALBUMIN 2.4 g/dl (3.3-4.9); ALBUMIN/GLOBULIN RATIO 0.53; ALKALINE PHOSPHATASE 79 IU/L (42-121); ANION GAP 5 (5-13); ASPARTATE AMINO TRANSFERASE 29 IU/L (15-46); BILIRUBIN,INDIRECT 0.2 mg/dl (0-1.1); BILIRUBIN,TOTAL 0.2 mg/dl (0.2-1.3); BLOOD UREA NITROGEN 9 mg/dl (7-20); CALCIUM 7.7 mg/dl (8.4-10.2); CARBON DIOXIDE 27 mmol/L (21-31); CHLORIDE 106 mmol/L (97-110); CREATININE 0.43 mg/dl (0.44-1.00); Estimated GFR > 60 mL/min (>60); GLUCOSE 101 mg/dl (70-220); POTASSIUM 3.6 mmol/L (3.5-5.1); SODIUM 138 mmol/L (135-144); TOTAL PROTEIN 6.9 g/dl (6.1-8.1)
[2018-08-11] MEDS: DOCUSATE SODIUM 100 MG CAP PO ×2 (08:51→21:34)
[2018-08-11] MEDS: POLYETHYLENE GLYCOL 17 GM PACKET PO (08:51)
[2018-08-11] MEDS: FERROUS SULFATE (EC) 325 MG TAB PO (08:51)
[2018-08-11] MEDS: MEROPENEM 1 GM/50ML(PMX) 50 ML IVPB ×2 (08:51→21:33)
[2018-08-11] MEDS: ASCORBIC ACID 500 MG TAB PO (08:51)
[2018-08-11] MEDS: FENTAnyl 50 MCG/ML VIAL (09:04)
[2018-08-11] MEDS: LIDOCAINE 1% (MDV) 20 ML INJ (09:04)
[2018-08-11] MEDS: MIDAZOLAM 1 MG/ML 2 ML INJ (09:04)
[2018-08-12] MEDS: ACETAMINOPHEN 325 MG TAB PO (01:48)
[2018-08-12 04:57] LABS: ADD MAN DIFF? NO
[2018-08-12 05:21] LABS: ANION GAP 5 (5-13); BLOOD UREA NITROGEN 9 mg/dl (7-20); CARBON DIOXIDE 26 mmol/L (21-31); CHLORIDE 108 mmol/L (97-110); CREATININE 0.37 mg/dl (0.44-1.00); Estimated GFR > 60 mL/min (>60); GLUCOSE 95 mg/dl (70-220); POTASSIUM 4.2 mmol/L (3.5-5.1); SODIUM 139 mmol/L (135-144)
[2018-08-12 05:25] LABS: BASOPHIL # 0.1 10^3/ul (0.0-0.1); BASOPHILS % 0.6 % (0.0-2.0); EOSINOPHILS # 0.2 10^3/ul (0.0-0.5); EOSINOPHILS % 2.4 % (0.0-7.0); HEMOGLOBIN 10.8 g/dl (12.0-16.0); LYMPHOCYTES # 2.5 10^3/ul (0.8-2.9); LYMPHOCYTES % 28.7 % (15.0-51.0); MEAN CORPUSCULAR HEMOGLOBIN 24.2 pg (29.0-33.0); MEAN CORPUSCULAR HGB CONC 29.2 g/dl (32.0-37.0); MEAN CORPUSCULAR VOLUME 82.8 fl (82.0-101.0); MEAN PLATELET VOLUME 9.1 fl (7.4-10.4); MONOCYTE # 0.5 10^3/ul (0.3-0.9); MONOCYTES % 5.7 % (0.0-11.0); NEUTROPHIL # 5.4 10^3/ul (1.6-7.5); PLATELET COUNT 304 10^3/UL (140-415); RED BLOOD COUNT 4.47 10^6/ul (4.20-5.40)
[2018-08-12 05:25] LABS: WHITE BLOOD COUNT 8.7 10^3/ul (4.8-10.8)
[2018-08-12 05:42] LABS: MAGNESIUM 2.1 mg/dl (1.7-2.5)
[2018-08-12 05:42] LABS: PHOSPHORUS 4.1 mg/dl (2.5-4.9)
[2018-08-12] MEDS: VANCOMYCIN HCL 1.5 GM in SOD CHLORIDE 0.9% 250 ML IVPB ×2 (06:26→17:26)
[2018-08-12] MEDS: DOCUSATE SODIUM 100 MG CAP PO ×2 (09:28→21:24)
[2018-08-12] MEDS: ASCORBIC ACID 500 MG TAB PO (09:28)
[2018-08-12] MEDS: FERROUS SULFATE (EC) 325 MG TAB PO (09:28)
[2018-08-12] MEDS: POLYETHYLENE GLYCOL 17 GM PACKET PO (09:28)
[2018-08-12] MEDS: MEROPENEM 1 GM/50ML(PMX) 50 ML IVPB ×2 (09:29→21:24)
[2018-08-13 05:17] LABS: ADD MAN DIFF? NO
[2018-08-13 05:25] LABS: BASOPHIL # 0.1 10^3/ul (0.0-0.1); BASOPHILS % 0.8 % (0.0-2.0); EOSINOPHILS # 0.3 10^3/ul (0.0-0.5); EOSINOPHILS % 3.4 % (0.0-7.0); HEMATOCRIT 26.6 % (37.0-47.0); HEMOGLOBIN 7.8 g/dl (12.0-16.0); LYMPHOCYTES # 2.9 10^3/ul (0.8-2.9); LYMPHOCYTES % 34.8 % (15.0-51.0); MEAN CORPUSCULAR HEMOGLOBIN 24.3 pg (29.0-33.0); MEAN CORPUSCULAR HGB CONC 29.3 g/dl (32.0-37.0); MEAN CORPUSCULAR VOLUME 82.9 fl (82.0-101.0); MEAN PLATELET VOLUME 9.1 fl (7.4-10.4); MONOCYTE # 0.5 10^3/ul (0.3-0.9); MONOCYTES % 6.2 % (0.0-11.0); NEUTROPHIL # 4.5 10^3/ul (1.6-7.5); NEUTROPHILS % 54.1 % (39.0-77.0); PLATELET COUNT 512 10^3/UL (140-415); RED BLOOD COUNT 3.21 10^6/ul (4.20-5.40); RED CELL DISTRIBUTION WIDTH 18.9 % (11.5-14.5)
[2018-08-13 05:25] LABS: WHITE BLOOD COUNT 8.3 10^3/ul (4.8-10.8)
[2018-08-13] MEDS: NACL 0.9% 3 ML SYG IV (05:34)
[2018-08-13] MEDS: VANCOMYCIN HCL 1.5 GM in SOD CHLORIDE 0.9% 250 ML IVPB (05:34)
[2018-08-13 06:05] LABS: PHOSPHORUS 4.5 mg/dl (2.5-4.9)
[2018-08-13 06:05] LABS: MAGNESIUM 2.1 mg/dl (1.7-2.5)
[2018-08-13 06:12] LABS: ANION GAP 6 (5-13); BLOOD UREA NITROGEN 8 mg/dl (7-20); CARBON DIOXIDE 26 mmol/L (21-31); CHLORIDE 109 mmol/L (97-110); CREATININE 0.45 mg/dl (0.44-1.00); Estimated GFR > 60 mL/min (>60); GLUCOSE 92 mg/dl (70-220); POTASSIUM 4.1 mmol/L (3.5-5.1); SODIUM 141 mmol/L (135-144)
[2018-08-13] MEDS: FERROUS SULFATE (EC) 325 MG TAB PO (08:56)
[2018-08-13] MEDS: DOCUSATE SODIUM 100 MG CAP PO ×2 (08:56→20:41)
[2018-08-13] MEDS: MEROPENEM 1 GM/50ML(PMX) 50 ML IVPB (08:57)
[2018-08-13] MEDS: POLYETHYLENE GLYCOL 17 GM PACKET PO (08:57)
[2018-08-13] MEDS: ASCORBIC ACID 500 MG TAB PO (08:57)
[2018-08-13] MEDS: LEVOFLOXACIN 750 MG TABLET PO (13:55)
[2018-08-14 04:56] LABS: ADD MAN DIFF? NO
[2018-08-14 05:03] LABS: WHITE BLOOD COUNT 11.7 10^3/ul (4.8-10.8)
[2018-08-14 05:03] LABS: BASOPHIL # 0.1 10^3/ul (0.0-0.1); BASOPHILS % 0.7 % (0.0-2.0); EOSINOPHILS # 0.3 10^3/ul (0.0-0.5); EOSINOPHILS % 2.2 % (0.0-7.0); HEMATOCRIT 29.4 % (37.0-47.0); HEMOGLOBIN 8.7 g/dl (12.0-16.0); LYMPHOCYTES # 4.3 10^3/ul (0.8-2.9); LYMPHOCYTES % 36.7 % (15.0-51.0); MEAN CORPUSCULAR HEMOGLOBIN 24.4 pg (29.0-33.0); MEAN CORPUSCULAR HGB CONC 29.6 g/dl (32.0-37.0); MEAN CORPUSCULAR VOLUME 82.6 fl (82.0-101.0); MEAN PLATELET VOLUME 8.8 fl (7.4-10.4); MONOCYTE # 0.7 10^3/ul (0.3-0.9); NEUTROPHIL # 6.3 10^3/ul (1.6-7.5); NEUTROPHILS % 53.7 % (39.0-77.0); PLATELET COUNT 591 10^3/UL (140-415); RED BLOOD COUNT 3.56 10^6/ul (4.20-5.40); RED CELL DISTRIBUTION WIDTH 19.6 % (11.5-14.5)
[2018-08-14 05:30] LABS: ANION GAP 7 (5-13); BLOOD UREA NITROGEN 7 mg/dl (7-20); CALCIUM 8.4 mg/dl (8.4-10.2); CARBON DIOXIDE 27 mmol/L (21-31); CHLORIDE 108 mmol/L (97-110); Estimated GFR > 60 mL/min (>60); GLUCOSE 89 mg/dl (70-220); POTASSIUM 3.8 mmol/L (3.5-5.1); SODIUM 142 mmol/L (135-144)
[2018-08-14 05:32] LABS: PHOSPHORUS 4.9 mg/dl (2.5-4.9)
[2018-08-14 05:32] LABS: MAGNESIUM 2.1 mg/dl (1.7-2.5)
[2018-08-14] MEDS: LEVOFLOXACIN 750 MG TABLET PO (05:36)
[2018-08-14] MEDS: POLYETHYLENE GLYCOL 17 GM PACKET PO (09:00)
[2018-08-14] MEDS: FERROUS SULFATE (EC) 325 MG TAB PO (09:09)
[2018-08-14] MEDS: DOCUSATE SODIUM 100 MG CAP PO ×2 (09:09→21:19)
[2018-08-14] MEDS: ASCORBIC ACID 500 MG TAB PO (09:09)
[2018-08-15 05:12] LABS: ADD MAN DIFF? NO
[2018-08-15 05:14] LABS: BASOPHIL # 0.1 10^3/ul (0.0-0.1); BASOPHILS % 0.4 % (0.0-2.0); EOSINOPHILS # 0.2 10^3/ul (0.0-0.5); EOSINOPHILS % 1.9 % (0.0-7.0); HEMATOCRIT 26.7 % (37.0-47.0); HEMOGLOBIN 7.9 g/dl (12.0-16.0); LYMPHOCYTES # 4.1 10^3/ul (0.8-2.9); LYMPHOCYTES % 32.4 % (15.0-51.0); MEAN CORPUSCULAR HEMOGLOBIN 24.7 pg (29.0-33.0); MEAN CORPUSCULAR HGB CONC 29.6 g/dl (32.0-37.0); MEAN CORPUSCULAR VOLUME 83.4 fl (82.0-101.0); MEAN PLATELET VOLUME 8.8 fl (7.4-10.4); MONOCYTE # 0.7 10^3/ul (0.3-0.9); MONOCYTES % 5.7 % (0.0-11.0); NEUTROPHIL # 7.4 10^3/ul (1.6-7.5); NEUTROPHILS % 59.1 % (39.0-77.0); PLATELET COUNT 526 10^3/UL (140-415); RED CELL DISTRIBUTION WIDTH 20.2 % (11.5-14.5)
[2018-08-15 05:14] LABS: WHITE BLOOD COUNT 12.6 10^3/ul (4.8-10.8)
[2018-08-15 05:28] LABS: PHOSPHORUS 5.1 mg/dl (2.5-4.9)
[2018-08-15 05:32] LABS: ANION GAP 4 (5-13); BLOOD UREA NITROGEN 7 mg/dl (7-20); CALCIUM 8.1 mg/dl (8.4-10.2); CARBON DIOXIDE 30 mmol/L (21-31); CHLORIDE 107 mmol/L (97-110); CREATININE 0.57 mg/dl (0.44-1.00); Estimated GFR > 60 mL/min (>60); GLUCOSE 93 mg/dl (70-220); POTASSIUM 3.7 mmol/L (3.5-5.1); SODIUM 141 mmol/L (135-144)
[2018-08-15] MEDS: LEVOFLOXACIN 750 MG TABLET PO (06:21)
[2018-08-15] MEDS: POLYETHYLENE GLYCOL 17 GM PACKET PO (09:00)
[2018-08-15] MEDS: FERROUS SULFATE (EC) 325 MG TAB PO (09:07)
[2018-08-15] MEDS: DOCUSATE SODIUM 100 MG CAP PO ×2 (09:07→21:00)
[2018-08-15] MEDS: ASCORBIC ACID 500 MG TAB PO (09:07)
[2018-08-15] MEDS ORDERED: ALBUTEROL HFA 8 GM INHALER INH (20:00)
[2018-08-15] MEDS ORDERED: HYDROCODONE/APAP (10/325) TAB PO (20:00)
[2018-08-16] MEDS: LEVOFLOXACIN 750 MG TABLET PO (05:58)
[2018-08-16] MEDS: POLYETHYLENE GLYCOL 17 GM PACKET PO (09:00)
[2018-08-16] MEDS: DOCUSATE SODIUM 100 MG CAP PO ×2 (09:00→21:21)
[2018-08-16] MEDS: FAMOTIDINE 20 MG TAB PO (09:00)
[2018-08-16] MEDS: ENOXAPARIN 40 MG/0.4 ML SYG SC (09:00)
[2018-08-16] MEDS: FERROUS SULFATE (EC) 325 MG TAB PO (09:11)
[2018-08-16] MEDS: ASCORBIC ACID 500 MG TAB PO (09:12)
[2018-08-17 05:21] LABS: ADD MAN DIFF? NO
[2018-08-17 05:25] LABS: BASOPHIL # 0.1 10^3/ul (0.0-0.1); BASOPHILS % 0.4 % (0.0-2.0); EOSINOPHILS # 0.2 10^3/ul (0.0-0.5); EOSINOPHILS % 1.8 % (0.0-7.0); HEMATOCRIT 27.3 % (37.0-47.0); LYMPHOCYTES # 4.7 10^3/ul (0.8-2.9); LYMPHOCYTES % 38.2 % (15.0-51.0); MEAN CORPUSCULAR HEMOGLOBIN 24.5 pg (29.0-33.0); MEAN CORPUSCULAR HGB CONC 29.3 g/dl (32.0-37.0); MEAN CORPUSCULAR VOLUME 83.7 fl (82.0-101.0); MEAN PLATELET VOLUME 8.7 fl (7.4-10.4); MONOCYTE # 0.7 10^3/ul (0.3-0.9); MONOCYTES % 6.1 % (0.0-11.0); NEUTROPHIL # 6.4 10^3/ul (1.6-7.5); NEUTROPHILS % 52.9 % (39.0-77.0); PLATELET COUNT 516 10^3/UL (140-415); RED BLOOD COUNT 3.26 10^6/ul (4.20-5.40); RED CELL DISTRIBUTION WIDTH 20.9 % (11.5-14.5)
[2018-08-17 05:25] LABS: WHITE BLOOD COUNT 12.2 10^3/ul (4.8-10.8)
[2018-08-17 05:32] LABS: ALANINE AMINOTRANSFERASE 28 IU/L (13-69); ALBUMIN 2.9 g/dl (3.3-4.9); ALBUMIN/GLOBULIN RATIO 0.63; ALKALINE PHOSPHATASE 209 IU/L (42-121); ANION GAP 7 (5-13); ASPARTATE AMINO TRANSFERASE 16 IU/L (15-46); BILIRUBIN,INDIRECT 0.3 mg/dl (0-1.1); BILIRUBIN,TOTAL 0.3 mg/dl (0.2-1.3); BLOOD UREA NITROGEN 9 mg/dl (7-20); CALCIUM 8.4 mg/dl (8.4-10.2); CARBON DIOXIDE 29 mmol/L (21-31); CHLORIDE 107 mmol/L (97-110); CREATININE 0.77 mg/dl (0.44-1.00); Estimated GFR > 60 mL/min (>60); GLUCOSE 95 mg/dl (70-220); POTASSIUM 3.8 mmol/L (3.5-5.1); SODIUM 143 mmol/L (135-144); TOTAL PROTEIN 7.5 g/dl (6.1-8.1)
[2018-08-17 05:35] LABS: PHOSPHORUS 5.2 mg/dl (2.5-4.9)
[2018-08-17] MEDS: LEVOFLOXACIN 750 MG TABLET PO (05:53)
[2018-08-17 07:29] LABS: ERYTHROCYTE SEDIMENTATION RATE 135 mm/Hr (0-20)
[2018-08-17] MEDS: ASCORBIC ACID 500 MG TAB PO (08:30)
[2018-08-17] MEDS: DOCUSATE SODIUM 100 MG CAP PO ×2 (08:30→21:00)
[2018-08-17] MEDS: FAMOTIDINE 20 MG TAB PO (08:30)
[2018-08-17] MEDS: FERROUS SULFATE (EC) 325 MG TAB PO (08:30)
[2018-08-17] MEDS: ENOXAPARIN 40 MG/0.4 ML SYG SC (08:38)
[2018-08-17] MEDS: POLYETHYLENE GLYCOL 17 GM PACKET PO (09:00)
[2018-08-17] MEDS: AMPICILLIN/SULB 3 GM/NS (PMX) 100 ML IVPB ×2 (14:11→20:53)
[2018-08-17] MEDS: LACTOBACILLUS RHAMNOSUS CAP PO (20:53)
[2018-08-18] MEDS: AMPICILLIN/SULB 3 GM/NS (PMX) 100 ML IVPB ×4 (01:26→18:23)
[2018-08-18 05:18] LABS: ADD MAN DIFF? NO
[2018-08-18 05:27] LABS: WHITE BLOOD COUNT 11.8 10^3/ul (4.8-10.8)
[2018-08-18 05:27] LABS: BASOPHIL # 0.1 10^3/ul (0.0-0.1); BASOPHILS % 0.4 % (0.0-2.0); EOSINOPHILS # 0.2 10^3/ul (0.0-0.5); EOSINOPHILS % 1.7 % (0.0-7.0); HEMATOCRIT 26.3 % (37.0-47.0); HEMOGLOBIN 7.9 g/dl (12.0-16.0); LYMPHOCYTES # 3.8 10^3/ul (0.8-2.9); LYMPHOCYTES % 32.5 % (15.0-51.0); MEAN CORPUSCULAR HEMOGLOBIN 25.2 pg (29.0-33.0); MEAN CORPUSCULAR VOLUME 83.8 fl (82.0-101.0); MEAN PLATELET VOLUME 8.7 fl (7.4-10.4); MONOCYTE # 0.7 10^3/ul (0.3-0.9); MONOCYTES % 6.1 % (0.0-11.0); NEUTROPHILS % 58.9 % (39.0-77.0); PLATELET COUNT 484 10^3/UL (140-415); RED BLOOD COUNT 3.14 10^6/ul (4.20-5.40); RED CELL DISTRIBUTION WIDTH 21.1 % (11.5-14.5)
[2018-08-18 05:52] LABS: ALANINE AMINOTRANSFERASE 18 IU/L (13-69); ALBUMIN 2.8 g/dl (3.3-4.9); ALBUMIN/GLOBULIN RATIO 0.59; ALKALINE PHOSPHATASE 163 IU/L (42-121); ANION GAP 5 (5-13); ASPARTATE AMINO TRANSFERASE 19 IU/L (15-46); BILIRUBIN,INDIRECT 0.3 mg/dl (0-1.1); BILIRUBIN,TOTAL 0.3 mg/dl (0.2-1.3); BLOOD UREA NITROGEN 12 mg/dl (7-20); CALCIUM 8.5 mg/dl (8.4-10.2); CARBON DIOXIDE 30 mmol/L (21-31); CHLORIDE 106 mmol/L (97-110); CREATININE 0.76 mg/dl (0.44-1.00); Estimated GFR > 60 mL/min (>60); GLUCOSE 103 mg/dl (70-220); POTASSIUM 3.8 mmol/L (3.5-5.1); SODIUM 141 mmol/L (135-144); TOTAL PROTEIN 7.5 g/dl (6.1-8.1)
[2018-08-18] MEDS: LEVOFLOXACIN 750 MG TABLET PO (06:50)
[2018-08-18] MEDS: SOD CHLORIDE 0.9% 100 ML (08:39)
[2018-08-18] MEDS: IOHEXOL 300MG/ML 150 ML BTL (08:39)
[2018-08-18] MEDS: FAMOTIDINE 20 MG TAB PO (09:16)
[2018-08-18] MEDS: DOCUSATE SODIUM 100 MG CAP PO (09:16)
[2018-08-18] MEDS: LACTOBACILLUS RHAMNOSUS CAP PO ×2 (09:16→20:58)
[2018-08-18] MEDS: ASCORBIC ACID 500 MG TAB PO (09:16)
[2018-08-18] MEDS: FERROUS SULFATE (EC) 325 MG TAB PO (09:17)
[2018-08-18] MEDS: ENOXAPARIN 40 MG/0.4 ML SYG SC (09:19)
[2018-08-19] MEDS: AMPICILLIN/SULB 3 GM/NS (PMX) 100 ML IVPB ×4 (00:42→18:07)
[2018-08-19 05:01] LABS: ADD MAN DIFF? NO
[2018-08-19 05:13] LABS: BASOPHIL # 0.1 10^3/ul (0.0-0.1); BASOPHILS % 0.4 % (0.0-2.0); EOSINOPHILS # 0.2 10^3/ul (0.0-0.5); EOSINOPHILS % 1.7 % (0.0-7.0); HEMATOCRIT 26.4 % (37.0-47.0); HEMOGLOBIN 7.9 g/dl (12.0-16.0); LYMPHOCYTES # 3.7 10^3/ul (0.8-2.9); LYMPHOCYTES % 31.3 % (15.0-51.0); MEAN CORPUSCULAR HEMOGLOBIN 24.7 pg (29.0-33.0); MEAN CORPUSCULAR HGB CONC 29.9 g/dl (32.0-37.0); MEAN CORPUSCULAR VOLUME 82.5 fl (82.0-101.0); MEAN PLATELET VOLUME 8.7 fl (7.4-10.4); MONOCYTE # 0.9 10^3/ul (0.3-0.9); MONOCYTES % 7.4 % (0.0-11.0); NEUTROPHIL # 6.9 10^3/ul (1.6-7.5); NEUTROPHILS % 58.7 % (39.0-77.0); PLATELET COUNT 486 10^3/UL (140-415)
[2018-08-19 05:13] LABS: WHITE BLOOD COUNT 11.8 10^3/ul (4.8-10.8)
[2018-08-19 05:55] LABS: ANION GAP 7 (5-13); BLOOD UREA NITROGEN 9 mg/dl (7-20); CALCIUM 8.7 mg/dl (8.4-10.2); CARBON DIOXIDE 28 mmol/L (21-31); CHLORIDE 105 mmol/L (97-110); CREATININE 0.78 mg/dl (0.44-1.00); Estimated GFR > 60 mL/min (>60); GLUCOSE 97 mg/dl (70-220); POTASSIUM 3.8 mmol/L (3.5-5.1); SODIUM 140 mmol/L (135-144)
[2018-08-19] MEDS: LEVOFLOXACIN 750 MG TABLET PO (06:05)
[2018-08-19] MEDS: FAMOTIDINE 20 MG TAB PO (08:44)
[2018-08-19] MEDS: ASCORBIC ACID 500 MG TAB PO (08:45)
[2018-08-19] MEDS: DOCUSATE SODIUM 100 MG CAP PO (08:45)
[2018-08-19] MEDS: FERROUS SULFATE (EC) 325 MG TAB PO (08:45)
[2018-08-19] MEDS: LACTOBACILLUS RHAMNOSUS CAP PO ×2 (08:45→20:44)
[2018-08-19] MEDS: ENOXAPARIN 40 MG/0.4 ML SYG SC (08:46)
[2018-08-20] MEDS: AMPICILLIN/SULB 3 GM/NS (PMX) 100 ML IVPB ×5 (00:09→23:30)
[2018-08-20 05:08] LABS: ADD MAN DIFF? NO
[2018-08-20 05:11] LABS: BASOPHIL # 0.1 10^3/ul (0.0-0.1); BASOPHILS % 0.6 % (0.0-2.0); EOSINOPHILS # 0.2 10^3/ul (0.0-0.5); EOSINOPHILS % 1.8 % (0.0-7.0); HEMATOCRIT 26.1 % (37.0-47.0); HEMOGLOBIN 7.8 g/dl (12.0-16.0); LYMPHOCYTES # 3.7 10^3/ul (0.8-2.9); LYMPHOCYTES % 34.3 % (15.0-51.0); MEAN CORPUSCULAR HEMOGLOBIN 24.7 pg (29.0-33.0); MEAN CORPUSCULAR HGB CONC 29.9 g/dl (32.0-37.0); MEAN CORPUSCULAR VOLUME 82.6 fl (82.0-101.0); MEAN PLATELET VOLUME 8.7 fl (7.4-10.4); MONOCYTE # 0.8 10^3/ul (0.3-0.9); MONOCYTES % 7.5 % (0.0-11.0); NEUTROPHILS % 55.5 % (39.0-77.0); PLATELET COUNT 448 10^3/UL (140-415); RED BLOOD COUNT 3.16 10^6/ul (4.20-5.40)
[2018-08-20 05:11] LABS: WHITE BLOOD COUNT 10.7 10^3/ul (4.8-10.8)
[2018-08-20] MEDS: LEVOFLOXACIN 750 MG TABLET PO (05:30)
[2018-08-20 05:39] LABS: ALANINE AMINOTRANSFERASE 10 IU/L (13-69); ALBUMIN/GLOBULIN RATIO 0.61; ALKALINE PHOSPHATASE 124 IU/L (42-121); ANION GAP 6 (5-13); ASPARTATE AMINO TRANSFERASE 15 IU/L (15-46); BILIRUBIN,INDIRECT 0.4 mg/dl (0-1.1); BILIRUBIN,TOTAL 0.4 mg/dl (0.2-1.3); BLOOD UREA NITROGEN 9 mg/dl (7-20); CALCIUM 8.9 mg/dl (8.4-10.2); CARBON DIOXIDE 28 mmol/L (21-31); CHLORIDE 107 mmol/L (97-110); CREATININE 0.76 mg/dl (0.44-1.00); Estimated GFR > 60 mL/min (>60); GLUCOSE 102 mg/dl (70-220); POTASSIUM 3.4 mmol/L (3.5-5.1); SODIUM 141 mmol/L (135-144); TOTAL PROTEIN 7.9 g/dl (6.1-8.1)
[2018-08-20] MEDS: FERROUS SULFATE (EC) 325 MG TAB PO (08:56)
[2018-08-20] MEDS: LACTOBACILLUS RHAMNOSUS CAP PO ×2 (08:56→21:14)
[2018-08-20] MEDS: FAMOTIDINE 20 MG TAB PO (08:56)
[2018-08-20] MEDS: DOCUSATE SODIUM 100 MG CAP PO (08:56)
[2018-08-20] MEDS: ASCORBIC ACID 500 MG TAB PO (08:56)
[2018-08-20] MEDS: ENOXAPARIN 40 MG/0.4 ML SYG SC (08:59)
[2018-08-20] MEDS: POTASSIUM CHLORIDE (SR) 10 MEQ TAB PO (11:03)
[2018-08-21 05:27] LABS: ADD MAN DIFF? NO
[2018-08-21 05:33] LABS: BASOPHIL # 0.1 10^3/ul (0.0-0.1); BASOPHILS % 0.7 % (0.0-2.0); EOSINOPHILS # 0.2 10^3/ul (0.0-0.5); EOSINOPHILS % 1.5 % (0.0-7.0); HEMATOCRIT 26.2 % (37.0-47.0); HEMOGLOBIN 7.7 g/dl (12.0-16.0); LYMPHOCYTES # 4.1 10^3/ul (0.8-2.9); LYMPHOCYTES % 37.2 % (15.0-51.0); MEAN CORPUSCULAR HEMOGLOBIN 24.5 pg (29.0-33.0); MEAN CORPUSCULAR HGB CONC 29.4 g/dl (32.0-37.0); MEAN CORPUSCULAR VOLUME 83.4 fl (82.0-101.0); MEAN PLATELET VOLUME 8.9 fl (7.4-10.4); MONOCYTE # 0.7 10^3/ul (0.3-0.9); MONOCYTES % 6.6 % (0.0-11.0); NEUTROPHIL # 5.9 10^3/ul (1.6-7.5); NEUTROPHILS % 53.7 % (39.0-77.0); PLATELET COUNT 464 10^3/UL (140-415); RED BLOOD COUNT 3.14 10^6/ul (4.20-5.40); RED CELL DISTRIBUTION WIDTH 20.7 % (11.5-14.5)
[2018-08-21 05:48] LABS: MAGNESIUM 1.8 mg/dl (1.7-2.5)
[2018-08-21 05:48] LABS: PHOSPHORUS 5.2 mg/dl (2.5-4.9)
[2018-08-21 05:55] LABS: ANION GAP 7 (5-13); BLOOD UREA NITROGEN 10 mg/dl (7-20); CALCIUM 8.9 mg/dl (8.4-10.2); CARBON DIOXIDE 28 mmol/L (21-31); CHLORIDE 106 mmol/L (97-110); CREATININE 0.75 mg/dl (0.44-1.00); Estimated GFR > 60 mL/min (>60); GLUCOSE 98 mg/dl (70-220); POTASSIUM 3.9 mmol/L (3.5-5.1); SODIUM 141 mmol/L (135-144)
[2018-08-21] MEDS: AMPICILLIN/SULB 3 GM/NS (PMX) 100 ML IVPB ×4 (06:23→23:47)
[2018-08-21] MEDS: LEVOFLOXACIN 750 MG TABLET PO (06:23)
[2018-08-21] MEDS: FAMOTIDINE 20 MG TAB PO (09:29)
[2018-08-21] MEDS: ASCORBIC ACID 500 MG TAB PO (09:29)
[2018-08-21] MEDS: DOCUSATE SODIUM 100 MG CAP PO (09:29)
[2018-08-21] MEDS: FERROUS SULFATE (EC) 325 MG TAB PO (09:29)
[2018-08-21] MEDS: LACTOBACILLUS RHAMNOSUS CAP PO ×2 (09:29→21:49)
[2018-08-21] MEDS: ENOXAPARIN 40 MG/0.4 ML SYG SC (09:32)
[2018-08-22 05:00] LABS: ADD MAN DIFF? NO
[2018-08-22 05:04] LABS: WHITE BLOOD COUNT 10.9 10^3/ul (4.8-10.8)
[2018-08-22 05:04] LABS: BASOPHIL # 0.1 10^3/ul (0.0-0.1); BASOPHILS % 0.8 % (0.0-2.0); EOSINOPHILS # 0.2 10^3/ul (0.0-0.5); EOSINOPHILS % 1.7 % (0.0-7.0); HEMATOCRIT 27.6 % (37.0-47.0); HEMOGLOBIN 8.1 g/dl (12.0-16.0); LYMPHOCYTES # 4.7 10^3/ul (0.8-2.9); LYMPHOCYTES % 43.1 % (15.0-51.0); MEAN CORPUSCULAR HEMOGLOBIN 24.5 pg (29.0-33.0); MEAN CORPUSCULAR HGB CONC 29.3 g/dl (32.0-37.0); MEAN CORPUSCULAR VOLUME 83.6 fl (82.0-101.0); MEAN PLATELET VOLUME 8.8 fl (7.4-10.4); MONOCYTE # 0.8 10^3/ul (0.3-0.9); MONOCYTES % 7.4 % (0.0-11.0); NEUTROPHIL # 5.1 10^3/ul (1.6-7.5); NEUTROPHILS % 46.6 % (39.0-77.0); PLATELET COUNT 475 10^3/UL (140-415); RED CELL DISTRIBUTION WIDTH 20.5 % (11.5-14.5)
[2018-08-22 05:30] LABS: PHOSPHORUS 5.1 mg/dl (2.5-4.9)
[2018-08-22 05:30] LABS: MAGNESIUM 1.9 mg/dl (1.7-2.5)
[2018-08-22 05:42] LABS: ANION GAP 8 (5-13); BLOOD UREA NITROGEN 7 mg/dl (7-20); CARBON DIOXIDE 27 mmol/L (21-31); CHLORIDE 107 mmol/L (97-110); CREATININE 0.76 mg/dl (0.44-1.00); Estimated GFR > 60 mL/min (>60); GLUCOSE 94 mg/dl (70-220); SODIUM 142 mmol/L (135-144)
[2018-08-22] MEDS: AMPICILLIN/SULB 3 GM/NS (PMX) 100 ML IVPB ×4 (06:49→23:52)
[2018-08-22] MEDS: DOCUSATE SODIUM 100 MG CAP PO (09:21)
[2018-08-22] MEDS: FAMOTIDINE 20 MG TAB PO (09:21)
[2018-08-22] MEDS: FERROUS SULFATE (EC) 325 MG TAB PO (09:21)
[2018-08-22] MEDS: LACTOBACILLUS RHAMNOSUS CAP PO ×2 (09:21→21:25)
[2018-08-22] MEDS: ASCORBIC ACID 500 MG TAB PO (09:21)
[2018-08-22] MEDS: ENOXAPARIN 40 MG/0.4 ML SYG SC (09:23)
[2018-08-23] MEDS: AMPICILLIN/SULB 3 GM/NS (PMX) 100 ML IVPB ×3 (05:03→17:50)
[2018-08-23 05:09] LABS: WHITE BLOOD COUNT 9.4 10^3/ul (4.8-10.8)
[2018-08-23 05:09] LABS: ADD MAN DIFF? NO; BASOPHIL # 0.1 10^3/ul (0.0-0.1); BASOPHILS % 1.1 % (0.0-2.0); EOSINOPHILS # 0.2 10^3/ul (0.0-0.5); EOSINOPHILS % 1.7 % (0.0-7.0); HEMATOCRIT 25.2 % (37.0-47.0); HEMOGLOBIN 7.6 g/dl (12.0-16.0); LYMPHOCYTES % 43.1 % (15.0-51.0); MEAN CORPUSCULAR HEMOGLOBIN 24.8 pg (29.0-33.0); MEAN CORPUSCULAR HGB CONC 30.2 g/dl (32.0-37.0); MEAN CORPUSCULAR VOLUME 82.4 fl (82.0-101.0); MEAN PLATELET VOLUME 8.8 fl (7.4-10.4); MONOCYTE # 0.7 10^3/ul (0.3-0.9); MONOCYTES % 7.5 % (0.0-11.0); NEUTROPHIL # 4.3 10^3/ul (1.6-7.5); NEUTROPHILS % 46.2 % (39.0-77.0); PLATELET COUNT 428 10^3/UL (140-415); RED BLOOD COUNT 3.06 10^6/ul (4.20-5.40)
[2018-08-23 05:33] LABS: PHOSPHORUS 5.7 mg/dl (2.5-4.9)
[2018-08-23 05:33] LABS: MAGNESIUM 1.7 mg/dl (1.7-2.5)
[2018-08-23 05:35] LABS: ANION GAP 6 (5-13); BLOOD UREA NITROGEN 7 mg/dl (7-20); CALCIUM 8.8 mg/dl (8.4-10.2); CARBON DIOXIDE 29 mmol/L (21-31); CHLORIDE 107 mmol/L (97-110); CREATININE 0.74 mg/dl (0.44-1.00); Estimated GFR > 60 mL/min (>60); GLUCOSE 97 mg/dl (70-220); POTASSIUM 3.5 mmol/L (3.5-5.1); SODIUM 142 mmol/L (135-144)
[2018-08-23] MEDS: LACTOBACILLUS RHAMNOSUS CAP PO ×2 (09:11→21:39)
[2018-08-23] MEDS: FERROUS SULFATE (EC) 325 MG TAB PO (09:11)
[2018-08-23] MEDS: ASCORBIC ACID 500 MG TAB PO (09:11)
[2018-08-23] MEDS: DOCUSATE SODIUM 100 MG CAP PO (09:11)
[2018-08-23] MEDS: FAMOTIDINE 20 MG TAB PO (09:11)
[2018-08-23] MEDS: ENOXAPARIN 40 MG/0.4 ML SYG SC (09:13)
[2018-08-24] MEDS: AMPICILLIN/SULB 3 GM/NS (PMX) 100 ML IVPB ×3 (00:33→12:10)
[2018-08-24] MEDS: LACTOBACILLUS RHAMNOSUS CAP PO ×2 (09:07→21:48)
[2018-08-24] MEDS: FERROUS SULFATE (EC) 325 MG TAB PO (09:07)
[2018-08-24] MEDS: DOCUSATE SODIUM 100 MG CAP PO (09:07)
[2018-08-24] MEDS: FAMOTIDINE 20 MG TAB PO (09:07)
[2018-08-24] MEDS: ASCORBIC ACID 500 MG TAB PO (09:07)
[2018-08-24] MEDS: ENOXAPARIN 40 MG/0.4 ML SYG SC (09:09)
[2018-08-24] MEDS ORDERED: LEVOFLOXACIN 750 MG TABLET NGT (13:00)
[2018-08-25 05:06] LABS: ADD MAN DIFF? NO
[2018-08-25 05:23] LABS: WHITE BLOOD COUNT 11.3 10^3/ul (4.8-10.8)
[2018-08-25 05:23] LABS: BASOPHIL # 0.1 10^3/ul (0.0-0.1); BASOPHILS % 0.7 % (0.0-2.0); EOSINOPHILS # 0.1 10^3/ul (0.0-0.5); EOSINOPHILS % 1.2 % (0.0-7.0); HEMATOCRIT 27.7 % (37.0-47.0); HEMOGLOBIN 8.1 g/dl (12.0-16.0); LYMPHOCYTES # 3.4 10^3/ul (0.8-2.9); LYMPHOCYTES % 29.6 % (15.0-51.0); MEAN CORPUSCULAR HEMOGLOBIN 24.5 pg (29.0-33.0); MEAN CORPUSCULAR HGB CONC 29.2 g/dl (32.0-37.0); MEAN CORPUSCULAR VOLUME 83.9 fl (82.0-101.0); MONOCYTE # 0.9 10^3/ul (0.3-0.9); NEUTROPHIL # 6.8 10^3/ul (1.6-7.5); NEUTROPHILS % 60.1 % (39.0-77.0); PLATELET COUNT 423 10^3/UL (140-415)
[2018-08-25 05:45] LABS: ANION GAP 6 (5-13); BLOOD UREA NITROGEN 8 mg/dl (7-20); CARBON DIOXIDE 30 mmol/L (21-31); CHLORIDE 102 mmol/L (97-110); CREATININE 0.76 mg/dl (0.44-1.00); Estimated GFR > 60 mL/min (>60); GLUCOSE 109 mg/dl (70-220); POTASSIUM 3.9 mmol/L (3.5-5.1); SODIUM 138 mmol/L (135-144)
[2018-08-25 05:51] LABS: MAGNESIUM 1.7 mg/dl (1.7-2.5)
[2018-08-25 05:51] LABS: PHOSPHORUS 5.4 mg/dl (2.5-4.9)
[2018-08-25] MEDS: LEVOFLOXACIN 750 MG TABLET PO (07:24)
[2018-08-25] MEDS: DOCUSATE SODIUM 100 MG CAP PO (09:18)
[2018-08-25] MEDS: FERROUS SULFATE (EC) 325 MG TAB PO (09:18)
[2018-08-25] MEDS: FAMOTIDINE 20 MG TAB PO (09:18)
[2018-08-25] MEDS: ASCORBIC ACID 500 MG TAB PO (09:18)
[2018-08-25] MEDS: LACTOBACILLUS RHAMNOSUS CAP PO (09:18)
[2018-08-25] MEDS: ENOXAPARIN 40 MG/0.4 ML SYG SC (09:20)
== END 2018-08-25 15:35 | disposition home or self-care (01) | DRG 698 ==
LOC: MS1 08-11 17:09 → E/R 22:19 → MS1 08-07 03:01
PROC: 0K9P30Z Drainage of Left Hip Muscle with Drainage Device, Percutaneous Approach (ICD-10-PCS; principal; 2018-08-09)
DX: T83.592A Infection and inflammatory reaction due to indwelling ureteral stent, initial encounter (principal); A41.9 Sepsis, unspecified organism; K68.12 Psoas muscle abscess; K68.19 Other retroperitoneal abscess; N13.6 Pyonephrosis; Z68.42 Body mass index [BMI] 45.0-49.9, adult; N39.0 Urinary tract infection, site not specified; N12 Tubulo-interstitial nephritis, not specified as acute or chronic; D50.9 Iron deficiency anemia, unspecified; E66.01 Morbid (severe) obesity due to excess calories; Y83.3 Surgical operation with formation of external stoma as the cause of abnormal reaction of the patient, or of later complication, without mention of misadventure at the time of the procedure; K80.20 Calculus of gallbladder without cholecystitis without obstruction; B96.89 Other specified bacterial agents as the cause of diseases classified elsewhere; J44.9 Chronic obstructive pulmonary disease, unspecified
CPT/HCPCS: 74176; 74177; 74178; 77012; 80048; 80053; 80202; 81001; 81003; 81025; 83036; 83605; 83690; 83735; 84100; 85025; 85610; 85651; 85730; 87070; 87081; 87086; 93005